=== PATIENT | male | born 1970 | race Two or more races ===

== ENCOUNTER 2021-07-26 16:48 | Emergency (ER) | payer MEDICAID ==
[~2021-07-26] VITALS: Ht 182.9 cm; Wt 123.4 kg
[2021-07-26] MEDS ORDERED: IBUPROFEN 800 MG TAB PO ONE (22:00)
[2021-07-26 22:17] VITALS: BP 139/95
== END 2021-07-26 23:20 | disposition home or self-care (01) ==
LOC: ER 16:48
DX: K04.7 Periapical abscess without sinus (principal); K02.9 Dental caries, unspecified